=== PATIENT | male | born 1965 | race Hispanic/Latino ===

== ENCOUNTER 2017-06-10 16:19 | Outpatient (CLI) | payer BC ==
--- NOTE | 2017-06-10 17:24 | RAD ---
LUMBAR SPINE FOUR VIEWS 06/10/17 HISTORY: Low back pain. FINDINGS: There are five lumbar type vertebrae. Pedicles are intact. Vertebral body heights are maintained. Mod erate degree of osteophytosis is present throughout the lower facets. No abnormal translational motio n is evident upon flexion or extension. IMPRESSION: Lower lumbar spondylosis. No evidence of compression fracture. POS: CICI
== END 2017-06-10 16:20 | disposition home or self-care (01) ==
LOC: MRI 16:19
PROVIDERS: ATTEND Surgery
DX: M47.26 Other spondylosis with radiculopathy, lumbar region (principal); M47.16 Other spondylosis with myelopathy, lumbar region
CPT/HCPCS: 72110; 72141; 72146

== ENCOUNTER 2017-06-12 09:08 | Outpatient (CLI) | payer BC ==
--- NOTE | 2017-06-12 10:41 | MRI ---
MRI OF CERVICAL SPINE WITHOUT CONTRAST: CLINICAL HISTORY: Myelopathy subsequent to lifting heavy objet over head. FINDINGS: There is no evidence of compression fracture. No subluxation. There is straightening of the normal cervical curvature. Craniocervical junction is intact. Contents of the posterior fossa are unremark able. C1-2: No high-grade central canal stenosis. C2-3: Mild narrowing of the central canal due to disk-osteophyte complex. There is evidence of uncin ate process and facet hypertrophy with mild bilateral neural foraminal narrowing. C3-4: There is a disk extrusion with cephalad migration of disk material, centered within the right paracentral zone. This does result in mild ventral cord mass effect at and to the right of midline w ith a moderate degree of central canal stenosis. There is bilateral uncinate process and facet hyper trophy with moderate neural foraminal stenosis. C4-5: Disk-osteophyte complex present with moderate narrowing of the central canal and ventral cord effacement. There is mild bilateral neural foraminal stenosis. C5-6: There is a left paracentral disk protrusion with ventral cord effacement to the left of midlin e. There is no high-grade foraminal stenosis. C6-7: Large, broad-based disk protrusion which traverses the majority of the vertebral canal from th e right subarticular through medial left foraminal zone with severe cord compromise and severe centra l canal stenosis. Mild bilateral neural foraminal narrowing is present. C7-T1: There is no high-grade central canal stenosis. Motion artifact does limit assessment of the neural foramina without high-grade compromise identified. Evaluation of the cervical spinal cord reveals abnormal increased T2 signal most notable at the C6-7 level, compatible with cord edema related to the severe degree of extrinsic mass effect. IMPRESSION: Multilevel prominent disk pathology most notable at C6-7 with a large disk protrusion producing sever e mass effect upon the central spinal cord with associated cord edema. Urgent clinical assessment is warranted. Telephone call placed to patient's on-call physician, Prakash Gaines, at 1010 hours, 06/12/17. CODE CR POS: TRUNG
== END 2017-06-12 09:09 | disposition home or self-care (01) ==
LOC: TBSIIMAG 09:08
PROVIDERS: ATTEND Surgery
DX: M50.023 Cervical disc disorder at C6-C7 level with myelopathy (principal); G95.89 Other specified diseases of spinal cord
CPT/HCPCS: 72141

== ENCOUNTER 2017-06-15 20:50 | Inpatient (IN) | payer BC ==
[2017-06-15] MEDS ORDERED: traMADol HCl 50 MG TAB PO PRN (21:36)
[2017-06-15] MEDS ORDERED: tiZANidine HCl 4 MG TAB PO PRN (21:37)
[2017-06-15] MEDS ORDERED: HYDROcodone/Acetaminophen 5/325 mg Tablet PO PRN (21:37)
[2017-06-15] MEDS ORDERED: Ondansetron HCl/PF 4 MG/2 ML Vial IVP PRN (21:37)
[2017-06-15] MEDS ORDERED: Morphine PF 1 MG/ML SYR IVP PRN (21:38)
[2017-06-15] MEDS ORDERED: CEFAZOLIN/Water 2 GM/20 ML SYRINGE SLOW IVP SCH (21:45)
[2017-06-15 22:09] LABS: PTT 28.7 SEC (22.9-36.1); Prothrombin Time 12.8 SEC (12.0-14.7)
[2017-06-15] MEDS ORDERED: Acetaminophen 325 MG TAB PO PRN (22:19)
[2017-06-15 22:27] LABS: ALT (SGPT) 22 U/L (8-55); AST (SGOT) 21 U/L (5-34); Alkaline Phosphatase 77 U/L (40-150); Anion Gap 13 mmol/L (10-20); BUN (Urea Nitrogen) 15 mg/dL (8.4-25.7); Bilirubin, Total 0.5 mg/dL (0.2-1.2); Calc. Creatinine Clearance 0 mL/min (70-130); Calcium 9.6 mg/dL (7.8-10.44); Carbon Dioxide 24 mmol/L (22-29); Chloride 99 mmol/L (98-107); Estimated GFR-MDRD 72; Globulin 3.8 g/dL (2.4-3.5); Protein, Total 7.8 g/dL (6.0-8.3)
[2017-06-15 23:02] LABS: #Eosinphils 0.1 thou/uL (0.0-0.7); #Monocytes 0.6 thou/uL (0.11-0.59); #Neutrophils 4.6 thou/uL (1.40-6.50); %Basophils 0.1 % (0.0-1.0); %Eosinophils 1.9 % (0.0-10.0); %Lymphocytes 27.2 % (21.0-51.0); %Monocytes 7.9 % (0.0-10.0); Hematocrit 38.1 % (42.0-52.0); Mean Platelet Volume 6.7 fL (7.4-10.4); Red Blood Cell (RBC) Count 4.25 mill/uL (4.70-6.10); White Blood Cell (WBC) Count 7.3 thou/uL (4.8-10.8)
[2017-06-15] MEDS: Sodium Chloride 0.9% 1,000 ML IV SCH (23:07)
[2017-06-16 01:10] VITALS: BMI 29.9
[2017-06-16] MEDS ORDERED: FLU VACC QS2017-18 36 mo. & older 0.5 ML SYRINGE IM ONE (09:00)
[2017-06-16] MEDS ORDERED: CEFAZOLIN/Water 2 GM/20 ML SYRINGE ONE (11:32)
[2017-06-16] MEDS ORDERED: Thrombin 5000 UNITS/5 ML VIAL ONE (11:35)
[2017-06-16] MEDS ORDERED: Sodium Chloride 0.9% 10 ML ONE (11:35)
[2017-06-16] MEDS ORDERED: Fentanyl 250 MCG/5 ML VIAL ONE (12:09)
[2017-06-16] MEDS ORDERED: Dexamethasone 20 MG/5 ML VIAL ONE (12:36)
[2017-06-16] MEDS ORDERED: Propofol 200 MG/20 ML VIAL ONE (12:36)
[2017-06-16] MEDS ORDERED: Lidocaine 2% PF 10 ML AMP (For Epidural Use) ONE (12:36)
[2017-06-16] MEDS ORDERED: PHENYLEPHRINE-NS 100 MCG/ML 10 ML SYRINGE ONE (12:36)
[2017-06-16] MEDS ORDERED: Vecuronium 10 MG VIAL ONE (12:36)
[2017-06-16] MEDS ORDERED: Ondansetron HCl/PF 4 MG/2 ML Vial ONE ×2 (12:36→15:29)
[2017-06-16] MEDS ORDERED: Glycopyrrolate 0.2 MG/ML 5 ML SYRINGE ONE (12:36)
[2017-06-16] MEDS ORDERED: Ondansetron HCl/PF 4 MG/2 ML Vial IVP PRN (13:20)
[2017-06-16] MEDS ORDERED: Promethazine HCl 25 MG/ML VIAL IM PRN (13:20)
[2017-06-16] MEDS ORDERED: Morphine Sulfate 2 MG/ML SYRINGE SLOW IVP PRN (13:20)
[2017-06-16] MEDS ORDERED: Meperidine HCl/PF 25 MG/ML VIAL SLOW IVP PRN (13:20)
[2017-06-16] MEDS ORDERED: HYDROmorphone 2 MG/ML VIAL SLOW IVP PRN (13:20)
[2017-06-16] MEDS ORDERED: Promethazine HCl 25 MG/ML VIAL SLOW IVP PRN (13:20)
[2017-06-16] MEDS ORDERED: Phenylephrine 10 MG/NS 250 ML 250 ML ONE (15:18)
[2017-06-16] MEDS: Sodium Chloride 0.9% 1,000 ML IV SCH (16:47)
[2017-06-16] MEDS: metFORMIN 500 MG TAB PO SCH (18:19)
--- NOTE | 2017-06-16 19:44 | OP ---
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 SURGEON: Uriel Reynoso M.D. PATIENT SAFETY OFFICER: Aniceto Carson PA-C. PROCEDURE: 1. Anterior C6-C7 diskectomy for decompression of spinal cord and nerve roots. 2. Preparation of endplates C6-C7 for arthrodesis with placement of interbody spacer packed with loc al bone autograft obtained from same incision and allograft C6-C7. 3. Anterior cervical plate and screw fixation, C6-C7. 4. Use of operative microscope for microdissection. PROCEDURE: After informed consent was obtained from the patient, the patient brought to OR 12. Prop er patient pause and identification was carried out. He was placed under excellent general endotrach eal anesthesia and positioned supine on the operating room table. We were satisfied with our positio carina and cervical spine was kept in neutral position and a right anterior oblique region was marked o ut. This area was sterilely cleansed, prepared, and draped and proper patient pause and identificati on was carried out. The wound was then opened with a combination of sharp, monopolar and blunt disse ction. We proceeded lateral to the tracheoesophageal bundle and medial to the right carotid sheath. We identified the prevertebral layer of deep cervical fascia and the longus colli muscles were retra cted. Distraction at C6-C7 then occurred following localization and the microscope was brought into the field for microdissection. A diskectomy was performed at C6-C7 and multiple disk fragments were removed with excellent decompression of the common dural tube and the C7 nerve roots. We were satisf ied at that point with our decompression. There was no spinal fluid leak. The endplates were prepar ed, interbody spacer of appropriate dimension was then placed, packed with local bone autograft obtai lennie from same incision and allograft at C6-C7, this was for arthrodesis. The microscope was removed. We then placed anterior cervical plate and screw fixation, C6-C7 with final tightening. We were sa tisfied with both gross and fluoroscopic visualization of our construct. The wound was copiously irr igated and closed in anatomic layers over a drain. The patient then emerged from anesthesia.
[2017-06-16] MEDS: CEFAZOLIN 1 GM, Syringe 2.5 ML in Sterile Water 7.5 ML SLOW IVP SCH (20:54)
[2017-06-16] MEDS ORDERED: Atorvastatin Calcium 20 MG TAB PO SCH (21:00)
[2017-06-16] MEDS ORDERED: Lisinopril 20 MG TAB PO SCH (21:00)
[2017-06-16] MEDS ORDERED: CEFAZOLIN 1 GM in Sodium Chloride 0.9% 100 ML IVPB SCH (22:00)
[2017-06-17] MEDS: Sodium Chloride 0.9% 1,000 ML IV SCH (01:15)
[2017-06-17 03:55] VITALS: TEMP 97.6
[2017-06-17] MEDS: CEFAZOLIN 1 GM, Syringe 2.5 ML in Sterile Water 7.5 ML SLOW IVP SCH (03:58)
[2017-06-17 08:45] VITALS: BP 115/73
[2017-06-17] MEDS ORDERED: Alogliptin Benzoate 25 MG TABLET PO SCH (09:00)
[2017-06-17] MEDS: metFORMIN 500 MG TAB PO SCH (09:18)
== END 2017-06-17 10:43 | disposition home or self-care (01) | DRG 473 ==
LOC: SURG A 20:50
PROVIDERS: ADMIT Surgery; ATTEND Surgery
PROC: 0RG10A0 Fusion of Cervical Vertebral Joint with Interbody Fusion Device, Anterior Approach, Anterior Column, Open Approach (ICD-10-PCS; principal; 2017-06-15)
PROC: 0RB30ZZ Excision of Cervical Vertebral Disc, Open Approach (ICD-10-PCS; 2017-06-15)
DX: M50.023 Cervical disc disorder at C6-C7 level with myelopathy (principal); I10 Essential (primary) hypertension; M48.02 Spinal stenosis, cervical region; E11.9 Type 2 diabetes mellitus without complications; Z23 Encounter for immunization
CPT/HCPCS: 36415; 36416; 76001; 80053; 85025; 85610; 85730; 90471; 90682; 90732; 93005; 93010; A4216; C1713; G0008; G0009; J0690; J1100; J2001; J2405; J2704; J3010; J3490; Q2036

== ENCOUNTER 2017-07-31 11:09 | Outpatient (CLI) | payer BC ==
--- NOTE | 2017-07-31 15:06 | RAD ---
FOUR VIEWS CERVICAL SPINE: DATE: 07/31/17. HISTORY: Cervical stenosis, spondylosis. FINDINGS: There are postsurgical changes related to anterior cervical fusion at the C6-[address] and screws transfixing this level. Intradiskal prosthesis is present. Vertebral bodies at this level are mostly obscured by overlying osseous structures limiting evaluation. No obvious acute frac ture or subluxation is seen. Perivertebral soft tissues are within normal limits. IMPRESSION: Postsurgical changes related to anterior cervical fusion at the C6-7 level. POS: TRUNG
== END 2017-07-31 11:10 | disposition home or self-care (01) ==
LOC: TBSIIMAG 11:09
PROVIDERS: ATTEND Surgery
DX: M48.02 Spinal stenosis, cervical region (principal); M47.12 Other spondylosis with myelopathy, cervical region; Z98.1 Arthrodesis status
CPT/HCPCS: 72040

== ENCOUNTER 2019-08-04 06:11 | Day surgery (SDC) | payer BC ==
[2019-08-03 11:57] VITALS: BMI 30.7
[2019-08-04] MEDS ORDERED: Midazolam HCl 2 mg/2 ml Vial ONE (06:29)
[2019-08-04] MEDS ORDERED: Fentanyl 100 MCG/2 ML VIAL ONE (06:29)
[2019-08-04] MEDS ORDERED: Cyclopentolate 1% Opth Drop 2 ML BOT ONE (06:50)
[2019-08-04] MEDS ORDERED: Phenylephrine 2.5% Ophth Soln 5 ML BOT ONE (06:50)
[2019-08-04] MEDS ORDERED: EPINEPHrine 0.3 MG, Dextrose 50% 3 ML in Ophthalmic Irrigation Solution 500 ML IRR SCH (08:00)
[2019-08-04] MEDS ORDERED: Triamcinolone 40 MG/ML VIAL ONE (09:50)
[2019-08-04] MEDS ORDERED: CEFAZOLIN 1 GM VIAL ONE (09:50)
[2019-08-04] MEDS ORDERED: Lidocaine 1% PF 5 ML VIAL ONE (09:50)
[2019-08-04] MEDS ORDERED: Maxitrol 0.1% Opth Oint 3.5 GM TUBE ONE (09:50)
[2019-08-04] MEDS ORDERED: Lidocaine 4% PF 5 ML AMP ONE (09:50)
[2019-08-04] MEDS ORDERED: Bupivacaine PF 0.75% SDV 10 ML ONE (09:50)
--- NOTE | 2019-08-04 12:28 | OP ---
DATE OF PROCEDURE: 08/04/2019 PREOPERATIVE DIAGNOSIS: Neovascular glaucoma, right eye. POSTOPERATIVE DIAGNOSIS: Neovascular glaucoma, right eye. PROCEDURES PERFORMED: Pars plana vitrectomy, membrane peel, tube shunt, and scleral patch graft, right eye. ANESTHESIA: Local with monitored anesthesia care. PROCEDURE IN DETAIL: The patient was identified in the preoperative holding area. Appropriate informed consent for the planned surgical procedure on the right eye had been obtained. The patient was transported to the operative suite. Appropriate cardiopulmonary monitoring was established. Local anesthesia was obtained using retrobulbar modified Van Lint lid block using 50:50 mixture of 4% lidocaine and 0.75% bupivacaine. The patient was prepped and draped in the usual sterile manner for ophthalmic surgery in the right eye. Lid speculum was placed in the right eye. A 25-gauge trocar was placed in the conjunctiva and sclera superotemporally, inferotemporally, supranasally. Supratemporal conjunctival peritomy was created with sharp dissection with Melchor scissors. The lateral and superior rectus muscles were looped on 2-0 silk ties. FP7 tube shunt was sutured to the sclera superior temporally using 5-0 Mersilene sutures. Light pipe vitreous cutter inserted into the eye. Core vitrectomy was performed. Posterior hyaloid face was elevated and peeled into the macula and periphery. Panretinal photocoagulation was placed along the macular areas of the retina. Tube was introduced into the superior temporal sclerotomy site. It was noted to be positioned well. Tutoplast was placed over the tube insertion site. The conjunctiva was closed with 6-0 plain gut suture. Retrobulbar Kenalog and subconjunctival Ancef were placed. Antibiotic ointment was placed. Eye was patched and shielded. The patient was taken to postoperative recovery unit in good condition, having suffered no immediate perioperative complications. The patient was instructed to keep patch and shield on, avoid lifting and bending, followup appointment with Dr. Obrien. Job ID: [id number]
== END 2019-08-04 10:40 | disposition home or self-care (01) ==
LOC: SDC 06:11
PROVIDERS: ATTEND Ophthalmology Retina Specialist
PROC: 08T43ZZ Resection of Right Vitreous, Percutaneous Approach (ICD-10-PCS; principal; 2019-08-04)
PROC: 08123J4 Bypass Right Anterior Chamber to Sclera with Synthetic Substitute, Percutaneous Approach (ICD-10-PCS; principal; 2019-08-04)
DX: H40.89 Other specified glaucoma (principal); E11.9 Type 2 diabetes mellitus without complications; Z79.82 Long term (current) use of aspirin; Z79.84 Long term (current) use of oral hypoglycemic drugs; Z79.899 Other long term (current) drug therapy
CPT/HCPCS: J0171; J0690; J2001; J2250; J3010; J3301; J3490; L8612